=== PATIENT | male | born 1935 | race Asian ===

== ENCOUNTER 2016-06-19 07:46 | Emergency (ER) | payer MEDICARE, MEDICAID ==
[2016-06-19] MEDS ORDERED: ASPIRIN CHEWTAB 81 MG TABLET ONE (07:54)
[2016-06-19 08:06] LABS: ABSOLUTE NEUTROPHIL COUNT 8.4 K/mm3 (1.8-7.7); BASO # 0.1 K/mm3 (0.0-0.2); BASO % 0.5 % (0.2-1.0); EOS % 0.3 % (0.9-2.9); HEMATOCRIT 42.9 % (32.0-52.0); HEMOGLOBIN 14.2 gm/l (14.0-18.0); IMM NEUT% 0.2 % (0-1); LYMPH # 1.3 (1.0-4.8); MEAN CELL VOLUME 95.5 fl (80.0-94.0); MEAN CORPUSCULAR HEMOGLOBIN 31.6 pg (27.0-31.0); MEAN CORPUSCULAR HGB CONC 33.1 g/dl (33.0-37.0); MEAN PLATELET VOLUME 9.5 fl (7.4-10.4); MONO # 0.4 (0.0-0.8); PLATELET COUNT 288 K/mm3 (130-400); RED CELL DISTRIBUTION WIDTH 11.7 % (11.5-14.5)
--- NOTE | 2016-06-19 08:15 | RAD ---
CHEST-AP BEDSIDE COMPARISON: Chest 2 views, 11/15/2014 HISTORY: Chest pain FINDINGS: Views: Frontal chest. Lungs: Hyperinflated and hyperlucent. No infiltrate or pneumothorax. Heart and vessels: Normal Trachea and bronchi: Normal Mediastinum and michelle: Normal Costophrenic sulci: Normal Chest wall and bones: Normal Upper abdomen: Normal. IMPRESSION: Chronic obstructive pulmonary disease without infiltrate.
[2016-06-19 08:21] LABS: ALB/GLOB RATIO 1.5 (>1.0); ALBUMIN 4.3 gm/dL (3.5-5.7); CALCIUM 9.1 mg/dL (8.6-10.3); MAGNESIUM 2.3 mg/dL (1.9-2.7)
[2016-06-19 08:25] LABS: TROPONIN I 0.14 ng/ml (0.0-0.06)
[2016-06-19 08:28] LABS: CKMB ISOENZYME 8.3 ng/ml (0.6-6.3)
== END 2016-06-19 08:38 | disposition short-term general hospital (02) ==
LOC: ED 07:46
DX: I21.3 ST elevation (STEMI) myocardial infarction of unspecified site (principal)
CPT/HCPCS: 83880; 85025; 82553; 80053; 83735; 84484; 71010; 99284 ×2; 93005; A9270